=== PATIENT | female | born 1980 ===

== ENCOUNTER 2017-04-25 11:09 | Emergency (ER) | payer BC, MEDICAID, OTHER ==
[2017-04-25 11:10] VITALS: BMI 24.9
[2017-04-25 11:18] VITALS: RESP 18; TEMP 98.9
[2017-04-25] MEDS ORDERED: Oxycodone/Acetaminophen 5/325 mg Tab PO STA (12:39)
--- NOTE | 2017-04-25 12:43 | ED PDOC ---
Arrival/HPI - General Chief Complaint: Dental Pain Time Seen by Provider: 04/25/17 11:25 Historian: Patient - History of Present Illness Narrative History of Present Illness (Text): 04/25/17 12:00 This 36 yo female presents to this ED c/o left upper tooth ache x 3 days. Patient stated pain has worsen today. Patient denies other complains. Time/Duration: Other (3 days) Context: Home Past Medical History - Provider Review Nursing Documentation Reviewed: Yes - Infectious Disease Hx of Infectious Diseases: None - Cardiac Hx Cardiac Disorders: No - Pulmonary Hx Respiratory Disorders: No - Neurological Hx Neurological Disorder: No - HEENT Hx HEENT Disorder: No - Renal Hx Renal Disorder: No - Endocrine/Metabolic Hx Endocrine Disorders: No - Hematological/Oncological Hx Blood Disorders: No - Integumentary Hx Dermatological Disorder: No - Musculoskeletal/Rheumatological Hx Musculoskeletal Disorders: No - Gastrointestinal Hx Gastrointestinal Disorders: No - Genitourinary/Gynecological Hx Genitourinary Disorders: No - Psychiatric Hx Psychophysiologic Disorder: No Hx Substance Use: No - Surgical History Hx Appendectomy: Yes Hx Tubal Ligation: Yes Other/Comment: Tunal ligation - Anesthesia Hx Anesthesia: Yes Hx Anesthesia Reactions: No Family/Social History - Physician Review Nursing Documentation Reviewed: Yes Family/Social History: No Known Family HX Smoking Status: Heavy Smoker > 10 Cigarettes Daily Hx Alcohol Use: Yes Hx Substance Use: No Allergies/Home Meds Allergies/Adverse Reactions: Allergies cotrst Allergy (Uncoded 09/07/16 15:05) RASH Review of Systems - Review of Systems Constitutional: Normal. absent: Fatigue, Weight Change Eyes: Normal ENT: Other (dental pain) Respiratory: Normal Cardiovascular: Normal Gastrointestinal: Normal Genitourinary Female: Normal Musculoskeletal: Normal Skin: Normal Neurological: Normal Endocrine: Normal Hemo/Lymphatic: Normal Psychiatric: Normal Physical Exam Vital Signs Temp Pulse Resp BP Pulse Ox 04/25/17 11:12 98.9 F 104 H 18 158/93 H 98 Temperature: Afebrile Blood Pressure: Normal Pulse: Regular Respiratory Rate: Normal Appearance: Positive for: Well-Appearing, Non-Toxic, Comfortable Pain Distress: None Mental Status: Positive for: Alert and Oriented X 3 - Systems Exam Head: Present: Atraumatic, Normocephalic Pupils: Present: PERRL Extroacular Muscles: Present: EOMI Conjunctiva: Present: Normal Mouth: Present: Moist Mucous Membranes, Normal Lips, Normal Tounge, Normal Teeth , Other (Mild tenderness left upper molar gum area). No: Drooling Pharnyx: Present: Normal. No: ERYTHEMA, EXUDATE, TONSILS ENLARGED Nose (External): Present: Atraumatic Nose (Internal): Present: Normal Inspection Neck: Present: Normal Range of Motion. No: Meningeal Signs, MIDLINE TENDERNESS , Paraspinal Tenderness Respiratory/Chest: Present: Clear to Auscultation, Good Air Exchange. No: Respiratory Distress, Accessory Muscle Use, Retracting, Rhonchi Cardiovascular: Present: Regular Rate and Rhythm, Normal S1, S2. No: Murmurs Abdomen: Present: Normal Bowel Sounds. No: Tenderness, Distention, Peritoneal Signs Back: Present: Normal Inspection, Paraspinal Tenderness. No: CVA Tenderness Upper Extremity: Present: Normal Inspection, Normal ROM, Neurovascularly Intact , Capillary Refill < 2s. No: Cyanosis, Edema Lower Extremity: Present: Normal Inspection. No: Edema Neurological: Present: GCS=15, CN II-XII Intact, Speech Normal Skin: Present: Warm, Dry, Normal Color. No: Rashes Psychiatric: Present: Alert, Oriented x 3, Normal Insight, Normal Concentration Medical Decision Making ED Course and Treatment: 04/25/17 12:44 This 36 yo female presents to [facility] ED c/o left upper molar pain. no facial cellulitis or abscess. Normal ears. no facial rash. Denies fever, dysphagia, or sore throat. Denies dental trauma, or oral lesion. Dental block performed with Lidocaine 1 % with Marcaine 0.5%. Dental gallagher has improved. Patient tolerate d procedure well. [place] [employer] AWARE was reviewed and previous narcotic were filled. Re-evaluation Time: 12:44 Reassessment Condition: Re-examined, Improved - Medication Orders Current Medication Orders: Oxycodone/Acetaminophen (Percocet 5/325 Mg Tab) 1 tab PO STAT STA Stop: 04/25/17 12:40 Disposition/Present on Arrival - Present on Arrival Any Indicators Present on Arrival: No History of DVT/PE: No History of Uncontrolled Diabetes: No Urinary Catheter: No History of Decub. Ulcer: No History Surgical Site Infection Following: None - Disposition Have Diagnosis and Disposition been Completed?: Yes Diagnosis: Pain, dental Disposition: HOME/ ROUTINE Disposition Time: 12:47 Patient Plan: Discharge Condition: GOOD Discharge Instructions (ExitCare): Toothache (ED) Additional Instructions: Call private doctor for follow up visit in 1-2 days. Take medication as instructed with food. Call dentist for further evaluation. [facility] has a dental clinic. Reurn to emergency if symptoms worsen. Prescriptions: Acetaminophen/Hydrocodone Bi [Vicodin 300 mg-5 mg] 1 tab PO TID PRN #10 tab PRN Reason: Pain, Severe (8-10) Clindamycin [Cleocin] 300 mg PO QID #28 cap Naproxen 500 mg PO BID #14 tab Referrals: Ron Brown MD [Primary Care Provider] - Follow up with primary Forms: [facility] (Sudanese)
[2017-04-25 13:57] VITALS: BP 139/74; PULSE 66; O2SAT 100
== END 2017-04-25 13:57 | disposition home or self-care (01) ==
LOC: ED 11:09
DX: K08.89 Other specified disorders of teeth and supporting structures (principal); F17.210 Nicotine dependence, cigarettes, uncomplicated

== ENCOUNTER 2017-06-17 14:16 | Emergency (ER) | payer BC, MEDICAID ==
[2017-06-17 14:16] VITALS: BMI 24.9
[2017-06-17 14:34] VITALS: BP 148/87; PULSE 97; RESP 18; TEMP 98.2; O2SAT 98
--- NOTE | 2017-06-17 15:10 | ED PDOC ---
Arrival/HPI - General Chief Complaint: Abnormal Skin Integrity Time Seen by Provider: 06/17/17 14:57 Historian: Patient - History of Present Illness Narrative History of Present Illness (Text): 06/17/17 15:05 A 36 year old female presents to the emergency department complaining of rash for the past 2 weeks. Patient reports her rash appeared shortly after sleeping at a hotel. She reports examining her bed multiple times for bedbugs but has not found any. She states her rash looks similar to the last time she had scabies. Patient denies any fever, chills, nausea, vomiting, abdominal pain, chest pain, shortness of breath, cough, sore throat, difficulty swallowing, headache, dizziness or any other complaints. Patient denies any new lotion or detergent use. Time/Duration: Other (2 weeks) Symptom Course: Unchanged Quality: Other Context: Other Past Medical History - Provider Review Nursing Documentation Reviewed: Yes - Infectious Disease Hx of Infectious Diseases: None - Cardiac Hx Cardiac Disorders: No - Pulmonary Hx Respiratory Disorders: No - Neurological Hx Neurological Disorder: No - HEENT Hx HEENT Disorder: No - Renal Hx Renal Disorder: No - Endocrine/Metabolic Hx Endocrine Disorders: No - Hematological/Oncological Hx Blood Disorders: No - Integumentary Hx Dermatological Disorder: No - Musculoskeletal/Rheumatological Hx Musculoskeletal Disorders: No - Gastrointestinal Hx Gastrointestinal Disorders: No - Genitourinary/Gynecological Hx Genitourinary Disorders: No - Psychiatric Hx Psychophysiologic Disorder: No Hx Substance Use: No - Surgical History Hx Appendectomy: Yes Hx Tubal Ligation: Yes Other/Comment: Tunal ligation - Anesthesia Hx Anesthesia: Yes Hx Anesthesia Reactions: No Family/Social History - Physician Review Nursing Documentation Reviewed: Yes Family/Social History: No Known Family HX Smoking Status: Light Smoker < 10 Cigarettes Daily Hx Alcohol Use: Yes Frequency of alcohol use: Few days per week Hx Substance Use: No Allergies/Home Meds Allergies/Adverse Reactions: Allergies Contrast Allergy (Uncoded 06/17/17 14:34) RASH Review of Systems - Physician Review All systems were reviewed & negative as marked: Yes - Review of Systems Constitutional: absent: Fevers, Night Sweats ENT: absent: Sore Throat Respiratory: absent: SOB, Cough Cardiovascular: absent: Chest Pain Gastrointestinal: absent: Abdominal Pain, Nausea, Vomiting Skin: Rash Neurological: absent: Headache, Dizziness Physical Exam Vital Signs Reviewed: Yes Vital Signs Temp Pulse Resp BP Pulse Ox 06/17/17 14:30 98.2 F 97 H 18 148/87 98 Temperature: Afebrile Blood Pressure: Normal Pulse: Tachycardic Respiratory Rate: Normal Appearance: Positive for: Well-Appearing, Non-Toxic, Comfortable Pain Distress: None Mental Status: Positive for: Alert and Oriented X 3 - Systems Exam Head: Present: Atraumatic, Normocephalic Pupils: Present: PERRL Extroacular Muscles: Present: EOMI Conjunctiva: Present: Normal Mouth: Present: Moist Mucous Membranes Pharnyx: No: ERYTHEMA, EXUDATE, TONSILS ENLARGED Neck: Present: Normal Range of Motion Respiratory/Chest: Present: Clear to Auscultation, Good Air Exchange. No: Respiratory Distress, Accessory Muscle Use Cardiovascular: Present: Regular Rate and Rhythm, Normal S1, S2. No: Murmurs Abdomen: Present: Normal Bowel Sounds. No: Tenderness, Distention, Peritoneal Signs Back: Present: Normal Inspection Upper Extremity: Present: Normal Inspection. No: Cyanosis, Edema Lower Extremity: Present: Normal Inspection. No: Edema Neurological: Present: GCS=15, CN II-XII Intact, Speech Normal Skin: Present: Warm, Dry, Rashes (Discrete bite albert with excoriation to upper and lower extremities, and between web spaces of bilateral hands ) Psychiatric: Present: Alert, Oriented x 3, Normal Insight, Normal Concentration Medical Decision Making ED Course and Treatment: 06/17/17 15:05 Impression: A 36 year old female with a rash throughout her body. Differential Diagnosis included but are not limited to: Scabies Progress Notes: I have discussed the plan with the patient, who expresses understanding. Patient in agreement with plan to be discharged home. Patient is stable for discharge. Patient was instructed to follow up with physician or return if symptoms worsen or new concerning symptoms arise. - Scribe Statement The provider has reviewed the documentation as recorded by the Christina Pan Provider Scribe Attestation: All medical record entries made by the Scribe were at my direction and personally dictated by me. I have reviewed the chart and agree that the record accurately reflects my personal performance of the history, physical exam, medical decision making, and the department course for this patient. I have also personally directed, reviewed, and agree with the discharge instructions and disposition. Disposition/Present on Arrival - Present on Arrival Any Indicators Present on Arrival: No History of DVT/PE: No History of Uncontrolled Diabetes: No Urinary Catheter: No History of Decub. Ulcer: No History Surgical Site Infection Following: None - Disposition Have Diagnosis and Disposition been Completed?: Yes Diagnosis: Bug bites Disposition: HOME/ ROUTINE Disposition Time: 15:05 Patient Plan: Discharge Patient Problems: Current Active Problems Problem Status Onset Bug bites Acute Condition: GOOD Discharge Instructions (ExitCare): Scabies (ED) Additional Instructions: Apply cream from neck to toe. Wash off after 8-12 hours. Repeat in 1 week. Follow-up with PMD within 2 days. Return to ED if condition worsens. Prescriptions: Permethrin 5% [Permethrin] 1 unit TOP HS #1 tube Forms: [employer] (Honduran)
== END 2017-06-17 15:20 | disposition home or self-care (01) ==
LOC: ED 14:16
DX: S40.862A Insect bite (nonvenomous) of left upper arm, initial encounter (principal); S40.861A Insect bite (nonvenomous) of right upper arm, initial encounter; S80.862A Insect bite (nonvenomous), left lower leg, initial encounter; S80.861A Insect bite (nonvenomous), right lower leg, initial encounter; W57.XXXA Bitten or stung by nonvenomous insect and other nonvenomous arthropods, initial encounter; Y92.59 Other trade areas as the place of occurrence of the external cause

== ENCOUNTER 2018-01-01 13:43 | Emergency (ER) | payer MEDICAID ==
[2018-01-01 13:43] VITALS: BMI 24.9
[2018-01-01 14:02] VITALS: RESP 18; TEMP 98.5; O2SAT 100
[2018-01-01 15:39] VITALS: BP 124/79; PULSE 92
[2018-01-01 15:41] LABS: BASO # 0.02 K/mm3 (0.0-2.0); BASO % 0.2 % (0.0-3.0); EOS % 0.2 % (1.5-5.0); GRAN # 6.37 (1.4-6.5); GRAN % 66.3 % (50.0-68.0); HEMOGLOBIN 13.2 g/dL (12.0-16.0); LYMPH # 2.6 (1.2-3.4); MEAN CELL VOLUME 94.8 fl (80.0-105.0); MEAN CORPUSCULAR HEMOGLOBIN 32.5 pg (25.0-35.0); MEAN CORPUSCULAR HGB CONC 34.3 g/dl (31.0-37.0); MEAN PLATELET VOLUME 9.7 fl (7.0-11.0); MONO # 0.6 (0.1-0.6); MONO % 6.3 % (1.0-6.0); RBC 4.06 10^6/uL (3.5-6.1); RED CELL DISTRIBUTION WIDTH 12.5 % (11.5-14.5); WHITE BLOOD COUNT 9.6 10^3/ul (4.5-11.0)
[2018-01-01 15:52] LABS: ALB/GLOB RATIO 1.4 (1.1-1.8); ALBUMIN 4.6 g/dL (3.0-4.8); ALT/SGPT 33 U/L (7-56); AST/SGOT 27 U/L (14-36); BLOOD UREA NITROGEN 12 mg/dL (7-21); CALCIUM 10.5 mg/dL (8.4-10.5); GFR AFRICAN-AMERICAN > 60; GFR NON-AFRICAN AMERICAN > 60
--- NOTE | 2018-01-01 16:11 | US ---
HISTORY: Right breast palpable abnormality with local erythema in the skin overlying the abnormality. COMPARISON: None available. TECHNIQUE: Turn ultrasonography of the right breast was performed at the site of the palpable abnormality at the 8 o'clock radius right breast with grayscale and color Doppler ultrasonography applied. FINDINGS: RIGHT BREAST: There is a hypoechoic structure identified at the 8 o'clock radius 2 cm from the nipple with micro lobulation in the periphery diffusely and numerous septations internally with localized soft tissue including color Doppler blood flow suspicious for mass. It measures 1.3 x 0.9 x 1.4 cm. Several cystic components are felt to be be present and in images 5 and 8, the appearance is that it may be related to a duct and therefore an intraductal papilloma is of concern and tissue diagnosis is therefore advised. Abscess is unlikely given the level vascularity within this structure internally. There is no axillary lymphadenopathy. IMPRESSION: 1.4 cm micro lobulated mass is appreciated at the 2 o'clock radius corresponding to the palpable abnormality. Follow-up diagnostic mammography is advised on elective basis and tissue diagnosis would likely also be required. This is not felt to represent an abscess. BIRAD: BIRADS 0 Incomplete - Need additional imaging evaluation and/or prior mammograms for comparison Recommendation: Recall for additional imaging and/or comparison with prior examination, as described above. Patient will be contacted. Findings discussed with Dr. Gaines in lieu of Orion Everett 01/01/2018 4:05 p.m. with written down and read back verification.
[2018-01-01] MEDS ORDERED: Tmp-Smz 800 mg-160 mg DS Tab PO STA (16:40)
--- NOTE | 2018-01-01 16:44 | ED PDOC ---
Arrival/HPI - General Chief Complaint: Breast Problem Time Seen by Provider: 01/01/18 13:50 Historian: Patient - History of Present Illness Narrative History of Present Illness (Text): 01/01/18 17:03 37-year-old female presents today with right breast pain that started this morning. Patient states she woke up today with pain to the right breast. Patient states she noticed a small area of erythema and severe tenderness. Patient states underneath the area of erythema she noticed a painful lump. She denies any recent trauma or injury. Denies fevers or chills. Patient denies dizziness or weakness. Patient denies family history of breast cancer. pt denies nipple discharge. No other complaints Time/Duration: Other (this morning) Past Medical History - Provider Review Nursing Documentation Reviewed: Yes - Travel History Have you recently traveled outside [place] w/in the past 3 mons?: No - Infectious Disease Hx of Infectious Diseases: None - Cardiac Hx Cardiac Disorders: No - Pulmonary Hx Respiratory Disorders: No - Neurological Hx Neurological Disorder: No - HEENT Hx HEENT Disorder: No - Renal Hx Renal Disorder: No - Endocrine/Metabolic Hx Endocrine Disorders: No - Hematological/Oncological Hx Blood Disorders: No - Integumentary Hx Dermatological Disorder: No - Musculoskeletal/Rheumatological Hx Musculoskeletal Disorders: No - Gastrointestinal Hx Gastrointestinal Disorders: No - Genitourinary/Gynecological Hx Genitourinary Disorders: No - Psychiatric Hx Psychophysiologic Disorder: No Hx Substance Use: No - Surgical History Hx Appendectomy: Yes Hx Tubal Ligation: Yes Other/Comment: Tubal ligation. Ectopic . - Anesthesia Hx Anesthesia: Yes Hx Anesthesia Reactions: No Family/Social History - Physician Review Nursing Documentation Reviewed: Yes Family/Social History: Unknown Family HX Smoking Status: Light Smoker < 10 Cigarettes Daily Hx Alcohol Use: Yes Hx Substance Use: No Allergies/Home Meds Allergies/Adverse Reactions: Allergies Contrast Allergy (Uncoded 01/01/18 14:02) RASH Review of Systems - Review of Systems Constitutional: absent: Fatigue, Fevers Respiratory: absent: SOB, Cough Cardiovascular: absent: Chest Pain, Palpitations Gastrointestinal: absent: Abdominal Pain, Nausea, Vomiting Genitourinary Female: Other (right breast pain). absent: Dysuria, Frequency, Hematuria Musculoskeletal: absent: Back Pain, Neck Pain Skin: Rash Neurological: absent: Headache, Dizziness Physical Exam Vital Signs Reviewed: Yes Vital Signs Temp Pulse Resp BP Pulse Ox 04/04/18 15:38 92 H 18 124/79 100 01/01/18 14:02 98.5 F 102 H 18 126/88 100 Temperature: Afebrile Blood Pressure: Normal Pulse: Tachycardic Respiratory Rate: Normal Appearance: Positive for: Well-Appearing, Non-Toxic, Comfortable Pain Distress: None Mental Status: Positive for: Alert and Oriented X 3 - Systems Exam Head: Present: Atraumatic Mouth: Present: Moist Mucous Membranes Neck: Present: Normal Range of Motion Respiratory/Chest: Present: Clear to Auscultation, Good Air Exchange. No: Respiratory Distress, Accessory Muscle Use Cardiovascular: Present: Regular Rate and Rhythm, Normal S1, S2. No: Murmurs Abdomen: No: Tenderness Breast/Axillary: Present: Erythema, Masses, Symmetrical, Tender to Palpation ( right breast; there is approximately a quarter sized tendern mass noted to the lateral aspect of the right breast; + tenderness, + minimal erythema; no warmth. no nipple discharge. ). No: Axillary Lymphad, Fluctuance, Nipple Discharge Upper Extremity: Present: Normal ROM Lower Extremity: Present: Normal ROM Neurological: Present: GCS=15, Speech Normal Skin: Present: Warm, Dry Psychiatric: Present: Alert, Oriented x 3 Medical Decision Making ED Course and Treatment: 01/01/18 pt is non toxic well appearing; no distress. stable vitals. pt with tender right breast mass with erythema. cbc; wnl cmp; wnl breast US; HISTORY: Right breast palpable abnormality with local erythema in the skin overlying the abnormality. COMPARISON: None available. TECHNIQUE: Turn ultrasonography of the right breast was performed at the site of the palpable abnormality at the 8 o'clock radius right breast with grayscale and color Doppler ultrasonography applied. FINDINGS: RIGHT BREAST: There is a hypoechoic structure identified at the 8 o'clock radius 2 cm from the nipple with micro lobulation in the periphery diffusely and numerous septations internally with localized soft tissue including color Doppler blood flow suspicious for mass. It measures 1.3 x 0.9 x 1.4 cm. Several cystic components are felt to be be present and in images 5 and 8, the appearance is that it may be related to a duct and therefore an intraductal papilloma is of concern and tissue diagnosis is therefore advised. Abscess is unlikely given the level vascularity within this structure internally. There is no axillary lymphadenopathy. IMPRESSION: 1.4 cm micro lobulated mass is appreciated at the 2 o'clock radius corresponding to the palpable abnormality. Follow-up diagnostic mammography is advised on elective basis and tissue diagnosis would likely also be required. This is not felt to represent an abscess. BIRAD: BIRADS 0 Incomplete - Need additional imaging evaluation and/or prior mammograms for comparison Recommendation: Recall for additional imaging and/or comparison with prior examination, as described above. Patient will be contacted. dr. pang discussed results with radiologist. I discussed results in depth with patient; advised patient that she needs outpatient mammogram RADHA. advised patient of need to r/o cancer. I spoke with patients primary care physician (dr. Dalia isabel) in depth; advised him of abnormal US finding and need for immediate mammogram and possible bx. Pt has appointment with him tomorrow in the office. will start patient on abx and f/u with PMD tomorrow for rx for mammogram. bactrim and keflex ordered. pt verbalized understanding of all instructions and need for immediate f/u. impression; breast mass, cellulitis motrin every 6 hours as needed for pain Bactrim 1 tablet twice daily 7 days Keflex 1 capsule 4 times daily 7 days Follow up with her primary care physician tomorrow: Do not miss your appointment. You will need an outpatient mammogram as soon as possible! Follow up with the breast specialist RADHA. Return immediately if symptoms worsen persist or if new concerning symptoms develop: High fevers, increasing pain, increasing redness, increasing swelling, purulent discharge Pt eloped from ER without antibiotics and without copy of breast US. I called patient and left message to call back RADHA. - Lab Interpretations Lab Results: 01/01/18 15:00 01/01/18 15:00 Lab Results 01/01/18 15:00: WBC 9.6 D, RBC 4.06, Hgb 13.2, Hct 38.5, MCV 94.8, MCH 32.5, MCHC 34.3, RDW 12.5, Plt Count 327, MPV 9.7, Gran % 66.3, Lymph % (Auto) 27.0, [place] % (Auto) 6.3 H, Eos % (Auto) 0.2 L, Baso % (Auto) 0.2, Gran # 6.37, Lymph # (Auto) 2.6, [place] # (Auto) 0.6, Eos # (Auto) 0.0, Baso # (Auto) 0.02 01/01/18 15:00: Sodium 141, Potassium 4.1, Chloride 102, Carbon Dioxide 27, Anion Gap 16, BUN 12, Creatinine 0.6 L, Est GFR ( Amer) > 60, Est GFR ( Non-Af Amer) > 60, Random Glucose 92, Calcium 10.5, Total Bilirubin 0.4, AST 27 , ALT 33, Alkaline Phosphatase 85, Total Protein 7.9, Albumin 4.6, Globulin 3.3 , Albumin/Globulin Ratio 1.4 - RAD Interpretation Radiology Orders: 01/01/18 14:55 BREAST LIMITED RT [US] Stat - Medication Orders Current Medication Orders: Cephalexin Monohydrate (Keflex) 500 mg PO STAT STA PRN Reason: Protocol Stop: 01/01/18 16:41 Trimethoprim/Sulfamethoxazole (Bactrim Ds Tab) 1 tab PO STAT STA PRN Reason: Protocol Stop: 01/01/18 16:41 Discontinued Medications Ketorolac Tromethamine (Toradol) 30 mg IVP STAT STA Stop: 01/01/18 14:57 Last Admin: 01/01/18 15:05 Dose: 30 mg MAR Pain Assessment Document 01/01/18 15:05 SF (Rec: [facility]01[facility]18 15:05 [email or web address] Pain Reassessment Is this a pain reassessment? Yes Sleep Is patient sleeping during reassessment? No Presence of Pain Presence of Pain Yes Pain Scale Used Pain Scale Used Numeric Location Left, Right or Bilateral Right Pain Location Body Site Breast Description Description Constant IVP Administration Document 01/01/18 15:05 SF (Rec: 01/01/18 15:05 [email or web address] Charges for Administration # of IVP Administrations 1 Disposition/Present on Arrival - Present on Arrival Any Indicators Present on Arrival: No History of DVT/PE: No History of Uncontrolled Diabetes: No Urinary Catheter: No History of Decub. Ulcer: No History Surgical Site Infection Following: None - Disposition Have Diagnosis and Disposition been Completed?: Yes Diagnosis: Breast mass, right, Cellulitis of breast Disposition: LEFT W/O TREATMENT - ER ONLY Disposition Time: 16:41 Patient Plan: Discharge Patient Problems: Current Active Problems Problem Status Onset Breast mass, right Acute Cellulitis of breast Acute Condition: GOOD Discharge Instructions (ExitCare): Cellulitis (ED) Additional Instructions: motrin every 6 hours as needed for pain Bactrim 1 tablet twice daily 7 days Keflex 1 capsule 4 times daily 7 days Follow up with her primary care physician tomorrow: Do not miss your appointment. You will need an outpatient mammogram as soon as possible! Follow up with the breast specialist RADHA. Return immediately if symptoms worsen persist or if new concerning symptoms develop: High fevers, increasing pain, increasing redness, increasing swelling, purulent discharge Prescriptions: Cephalexin [Keflex] 500 mg PO QID #28 capsule Sulfamethoxazole/Trimethoprim [Bactrim DS 800 mg-160 mg] 1 tab PO BID #14 tab Referrals: Ron Isabel MD [Family Provider] - Follow up with primary Kristian Ruvalcaba MD [Staff Provider] - Follow up with primary Forms: [facility] (Turkish), WORK NOTE
== END 2018-01-01 16:45 | disposition left against medical advice (07) ==
LOC: ED 13:43
DX: N63.13 Unspecified lump in the right breast, lower outer quadrant (principal); F17.210 Nicotine dependence, cigarettes, uncomplicated; N61.0 Mastitis without abscess
CPT/HCPCS: 76642; 80053; 85025; 87040; 96374; 99285; J1885

== ENCOUNTER 2018-02-15 01:32 | Emergency (ER) | payer MEDICAID, OTHER ==
[2018-02-15 01:33] VITALS: BMI 24.9
[2018-02-15 01:43] VITALS: TEMP 98.7
[2018-02-15 02:35] LABS: BASO # 0.01 K/mm3 (0.0-2.0); BASO % 0.1 % (0.0-3.0); GRAN # 5.5 (1.4-6.5); GRAN % 57.8 % (50.0-68.0); LYMPH # 3.6 (1.2-3.4); LYMPH % 37.6 % (22.0-35.0); MEAN CELL VOLUME 93.9 fl (80.0-105.0); MEAN CORPUSCULAR HEMOGLOBIN 32.9 pg (25.0-35.0); MONO # 0.4 (0.1-0.6); MONO % 4.5 % (1.0-6.0); RBC 4.26 10^6/uL (3.5-6.1); RED CELL DISTRIBUTION WIDTH 13.1 % (11.5-14.5); WHITE BLOOD COUNT 9.5 10^3/ul (4.5-11.0)
[2018-02-15 02:47] LABS: ALB/GLOB RATIO 1.4 (1.1-1.8); ALBUMIN 5.3 g/dL (3.0-4.8); ALT/SGPT 32 U/L (7-56); AST/SGOT 40 U/L (14-36); BLOOD UREA NITROGEN 8 mg/dL (7-21); CALCIUM 9.7 mg/dL (8.4-10.5); GFR AFRICAN-AMERICAN > 60; GFR NON-AFRICAN AMERICAN > 60
[2018-02-15 02:57] LABS: TROPONIN I < 0.01 ng/mL
--- NOTE | 2018-02-15 03:47 | CT ---
EXAM: CT Head Without Intravenous Contrast EXAM DATE/TIME: 02/15/2018 2:20 AM CLINICAL HISTORY: 37 years old, female; Signs and symptoms; Weakness, extremity and weakness, facial; Additional info: R/O ich TECHNIQUE: Axial computed tomography images of the head/brain without intravenous contrast. All CT scans at this facility use one or more dose reduction techniques, viz.: automated exposure control; ma/kV adjustment per patient size (including targeted exams where dose is matched to indication; i.e. head); or iterative reconstruction technique. Coronal and sagittal reformatted images were created and reviewed. COMPARISON: No relevant prior studies available. FINDINGS: BRAIN: No acute abnormality identified. No acute hemorrhage seen within the brain. No acute extra-axial fluid collections visualized. No evidence of significant mass effect within the brain. No CT findings to suggest an acute, large territorial infarct, however, small or early acute infarcts may not be visible on CT. VENTRICLES: No evidence of significant hydrocephalus. BONES/JOINTS: Findings compatible with an old fracture involving the left orbital floor. No acute fractures are seen. SOFT TISSUES: No acute abnormality of the visualized soft tissues is seen. SINUSES: Visualized paranasal sinuses appear clear. MASTOID AIR CELLS: Mastoid air cells appear clear. IMPRESSION: - No acute findings seen within the brain. - See above for remaining findings.
[2018-02-15 04:05] LABS: URINE BILIRUBIN NEGATIVE (NEGATIVE); URINE BLOOD NEGATIVE (NEGATIVE); URINE GLUCOSE (UA) NEGATIVE (NEGATIVE); URINE LEUKOCYTE ESTERASE NEGATIVE Leu/uL (NEGATIVE); URINE PROTEIN NEGATIVE mg/dL (<30 mg/dL); URINE UROBILINOGEN 0.2 E.U./dL (<1 E.U./dL)
[2018-02-15 04:06] LABS: URINE APPEARANCE CLEAR (CLEAR); URINE COLOR YELLOW (YELLOW)
[2018-02-15 04:27] LABS: BARBITURATES, UR NEGATIVE (NEGATIVE); BENZODIAZEPINES, UR NEGATIVE (NEGATIVE); OPIATES, UR NEGATIVE (NEGATIVE); PHENCYCLIDINE, UR NEGATIVE (NEGATIVE)
[2018-02-15 04:51] VITALS: BP 126/78; PULSE 92; RESP 18; O2SAT 99
--- NOTE | 2018-02-15 05:00 | ED PDOC ---
Arrival/HPI - General Chief Complaint: Seizure Time Seen by Provider: 02/15/18 02:11 Historian: Patient, Family - History of Present Illness Narrative History of Present Illness (Text): 02/15/18 04:57 37 year old female, with no significant past medical history, presents to the emergency department complaining of seizure like activity. Patient's family states the patient had a seizure like activity that lasted a couple seconds. Patient admits to drinking alcohol every other night. Patient admits to occasional drug use. Patient denies any fever, chills, chest pain, shortness of breath, nausea, vomiting, diarrhea, back pain, neck pain, headache, dizziness, or any other complaints. Time/Duration: Prior to Arrival Symptom Onset: Sudden Symptom Course: Unchanged Activities at Onset: Light Context: Home Past Medical History - Provider Review Nursing Documentation Reviewed: Yes - Infectious Disease Hx of Infectious Diseases: None - Cardiac Hx Cardiac Disorders: No - Pulmonary Hx Respiratory Disorders: No - Neurological Hx Neurological Disorder: No - HEENT Hx HEENT Disorder: No - Renal Hx Renal Disorder: No - Endocrine/Metabolic Hx Endocrine Disorders: No - Hematological/Oncological Hx Blood Disorders: No - Integumentary Hx Dermatological Disorder: No - Musculoskeletal/Rheumatological Hx Musculoskeletal Disorders: No - Gastrointestinal Hx Gastrointestinal Disorders: No - Genitourinary/Gynecological Hx Genitourinary Disorders: No - Psychiatric Hx Psychophysiologic Disorder: No Hx Substance Use: No - Surgical History Hx Appendectomy: Yes Hx Tubal Ligation: Yes Other/Comment: Tubal ligation. Ectopic . - Anesthesia Hx Anesthesia: Yes Hx Anesthesia Reactions: No Family/Social History - Physician Review Nursing Documentation Reviewed: Yes Family/Social History: Unknown Family HX Smoking Status: Light Smoker < 10 Cigarettes Daily Hx Alcohol Use: Yes Hx Substance Use: No Allergies/Home Meds Allergies/Adverse Reactions: Allergies Iodinated Contrast- Oral and IV Dye Allergy (Verified 02/15/18 01:39) RASH Contrast Allergy (Uncoded 01/01/18 14:02) RASH Home Medications: Home Meds Medication Instructions Recorded Confirmed No Known Home Med 02/15/18 02/15/18 Review of Systems - Physician Review All systems were reviewed & negative as marked: Yes - Review of Systems Constitutional: Normal Eyes: Normal ENT: Normal Respiratory: Normal. absent: SOB Cardiovascular: Normal. absent: Chest Pain Gastrointestinal: Normal. absent: Abdominal Pain, Nausea, Vomiting Genitourinary Female: Normal. absent: Dysuria, Frequency, Hematuria, Urine Output Changes, Vaginal Discharge Musculoskeletal: Normal. absent: Back Pain, Neck Pain Skin: Normal. absent: Rash Neurological: Normal. absent: Headache, Dizziness Endocrine: Normal Hemo/Lymphatic: Normal Psychiatric: Normal Physical Exam Vital Signs Temp Pulse Resp BP Pulse Ox 02/15/18 04:47 92 H 18 126/78 99 02/15/18 01:42 98.7 F 125 H 16 125/87 100 Temperature: Afebrile Blood Pressure: Normal Pulse: Regular Respiratory Rate: Normal Appearance: Positive for: Well-Appearing, Non-Toxic, Comfortable Pain Distress: None Mental Status: Positive for: Alert and Oriented X 3 - Systems Exam Head: Present: Atraumatic, Normocephalic Pupils: Present: PERRL Extroacular Muscles: Present: EOMI Conjunctiva: Present: Normal Mouth: Present: Moist Mucous Membranes Neck: Present: Normal Range of Motion Respiratory/Chest: Present: Clear to Auscultation, Good Air Exchange. No: Respiratory Distress, Accessory Muscle Use Cardiovascular: Present: Regular Rate and Rhythm, Normal S1, S2. No: Murmurs Abdomen: No: Tenderness, Distention, Peritoneal Signs Back: Present: Normal Inspection Upper Extremity: Present: Normal Inspection. No: Cyanosis, Edema Lower Extremity: Present: Normal Inspection. No: Edema Neurological: Present: GCS=15, CN II-XII Intact, Speech Normal Skin: Present: Warm, Dry, Normal Color. No: Rashes Psychiatric: Present: Alert, Oriented x 3, Normal Insight, Normal Concentration Medical Decision Making ED Course and Treatment: 02/15/18 05:00 Impression: 37 year old female presents to the emergency department complaining of seizure like activity. Plan: -- EKG -- Chest X-ray -- CT Head -- Tylenol -- Urine Culture -- Reassess and disposition Progress Notes: EKG reviewed, shows Sinus tachycardia at [address] head reviewed, shows: BRAIN: No acute abnormality identified. No acute hemorrhage seen within the brain. No acute extra-axial fluid collections visualized. No evidence of significant mass effect within the brain. No CT findings to suggest an acute, large territorial infarct, however, small or early acute infarcts may not be visible on CT. VENTRICLES: No evidence of significant hydrocephalus. BONES/JOINTS: Findings compatible with an old fracture involving the left orbital floor. No acute fractures are seen. SOFT TISSUES: No acute abnormality of the visualized soft tissues is seen. SINUSES: Visualized paranasal sinuses appear clear. MASTOID AIR CELLS: Mastoid air cells appear clear. IMPRESSION: - No acute findings seen within the brain. - See above for remaining findings - Lab Interpretations Lab Results: 02/15/18 01:56 02/15/18 01:56 Lab Results 02/15/18 03:53: Urine Opiates Screen Negative, Urine Methadone Screen Negative, Ur Barbiturates Screen Negative, Ur Phencyclidine Scrn Negative, Ur Amphetamines Screen Negative, U Benzodiazepines Scrn Negative, U Oth Cocaine Metabols Negative, U Cannabinoids Screen Negative 02/15/18 03:53: Urine Color Yellow, Urine Appearance Clear, Urine pH 6.0, Ur Specific Saxon 1.010, Urine Protein Negative, Urine Glucose (UA) Negative, Urine Ketones Negative, Urine Blood Negative, Urine Nitrate Negative, Urine Bilirubin Negative, Urine Urobilinogen 0.2, Ur Leukocyte Esterase Negative 02/15/18 01:56: Alcohol, Quantitative 227 H 02/15/18 01:56: Sodium 147, Potassium 4.1, Chloride 106, Carbon Dioxide 17 L, Anion Gap 28 H, BUN 8, Creatinine 0.7, Est GFR ( Amer) > 60, Est GFR (Non -Af Amer) > 60, Random Glucose 109, Calcium 9.7, Magnesium 2.0, Total Bilirubin 0.3, AST 40 H D, ALT 32, Alkaline Phosphatase 78, Lactate Dehydrogenase 614, Total Creatine Kinase 195, Troponin I < 0.01, Total Protein 9.3 H, Albumin 5.3 H , Globulin 3.9, Albumin/Globulin Ratio 1.4 02/15/18 01:56: WBC 9.5, RBC 4.26, Hgb 14.0, Hct 40.0, MCV 93.9, MCH 32.9, MCHC 35.0, RDW 13.1, Plt Count 290, MPV 10.0, Gran % 57.8, Lymph % (Auto) 37.6 H, [place] % (Auto) 4.5, Eos % (Auto) 0.0 L, Baso % (Auto) 0.1, Gran # 5.50, Lymph # ( Auto) 3.6 H, [place] # (Auto) 0.4, Eos # (Auto) 0.0, Baso # (Auto) 0.01 - RAD Interpretation Radiology Orders: 02/15/18 02:20 HEAD W/O CONTRAST [CT] Stat CHEST PORTABLE [RAD] Stat - Medication Orders Current Medication Orders: Discontinued Medications Acetaminophen (Tylenol 325mg Tab) 975 mg PO STAT STA Stop: 02/15/18 02:35 Last Admin: 02/15/18 02:37 Dose: 975 mg MAR Pain/Vitals Document 02/15/18 02:37 LA (Rec: 02/15/18 02:37 LA [id number]) Pain Reassessment Is This A Pain ReAssessment? No Sleep Is patient sleeping during reassessment? No Presence of Pain Presence of Pain Yes Pain Scale Used Pain Scale Used Numeric Location Pain Location Body Securities Clerk Description Throbbing Intensity 7 Scale Used Numeric Pain Behavior Guarding - Scribe Statement The provider has reviewed the documentation as recorded by the Scribe Kaitlynn Wick All medical record entries made by the Scribe were at my direction and personally dictated by me. I have reviewed the chart and agree that the record accurately reflects my personal performance of the history, physical exam, medical decision making, and the department course for this patient. I have also personally directed, reviewed, and agree with the discharge instructions and disposition. Disposition/Present on Arrival - Present on Arrival Any Indicators Present on Arrival: No History of DVT/PE: No History of Uncontrolled Diabetes: No Urinary Catheter: No History of Decub. Ulcer: No History Surgical Site Infection Following: None - Disposition Have Diagnosis and Disposition been Completed?: Yes Diagnosis: Seizure-like activity Disposition: HOME/ ROUTINE Disposition Time: 04:30 Condition: GOOD Discharge Instructions (ExitCare): Seizures, Adult (DC) Additional Instructions: Thank you for letting us take care of you today. The emergency medical care you received today was directed at your acute symptoms. If you were prescribed any medication, please fill it and take as directed. It may take several days for your symptoms to resolve. Return to the Emergency Department if your symptoms worsen, do not improve, or if you have any other problems. Please contact your doctor or call one of the physicians/clinics you have been referred to that are listed on the Patient Visit Information form that is included in your discharge packet. Bring any paperwork you were given at discharge with you along with any medications you are taking to your follow up visit. Our treatment cannot replace ongoing medical care by a primary care provider (PCP) outside of the emergency department. Thank you for allowing the [facility] team to be part of your care today. Followup with your primary care doctor or our neurologist in 3-4 days for re- evaluation and further management. Referrals: Samuel Gaitan MD [Staff Provider] - Follow up with primary Forms: [employer] ([place])
--- NOTE | 2018-02-15 10:27 | RAD ---
HISTORY: r/o infiltrate COMPARISON: No FINDINGS: LUNGS: No active pulmonary disease. PLEURA: No significant pleural effusion identified, no pneumothorax apparent. CARDIOVASCULAR: Normal. OSSEOUS STRUCTURES: No significant abnormalities. VISUALIZED UPPER ABDOMEN: Normal. OTHER FINDINGS: None. IMPRESSION: No active disease.
--- NOTE | 2018-02-15 15:20 | CARD ---
APPROVED REPORT EKG Measurement Heart [id number] <Conclusion> Sinus tachycardia Possible Left atrial enlargement Borderline ECG
== END 2018-02-15 05:15 | disposition home or self-care (01) ==
LOC: ED 01:32
DX: R56.9 Unspecified convulsions (principal)